=== PATIENT | male | born 1965 | race Hispanic/Latino ===

== ENCOUNTER 2016-11-14 23:53 | Observation (INO) | payer SELFPAY ==
--- NOTE | 2016-11-15 00:15 | ED PDOC ---
Arrival/HPI - General Time Seen by Provider: 11/15/16 00:09 Historian: Patient, EMS - History of Present Illness Narrative History of Present Illness (Text): 11/15/16 00:12 Patient is a 49 year old male who presents to the emergency department via ambulance for public intoxication. Admits to drinking throughout the day. Pt denies suicidal or homicidal ideations. Denies any trauma or injury. Severity Level: Mild Activities at Onset: Light Context: Street Past Medical History - Provider Review Nursing Documentation Reviewed: Yes Family/Social History - Physician Review Nursing Documentation Reviewed: Yes Family/Social History: No Known Family HX Allergies/Home Meds Allergies/Adverse Reactions: Allergies Unobtainable Allergy (Verified 11/15/16 00:18) Home Medications: Home Meds Medication Instructions Recorded Confirmed Unobtainable 11/15/16 11/15/16 Review of Systems - Review of Systems Systems not reviewed;Unavailable: Intoxicated Respiratory: absent: SOB, Cough, Sputum Cardiovascular: absent: Chest Pain Physical Exam Vital Signs Reviewed: Yes Vital Signs Temp Pulse Resp BP Pulse Ox 11/15/16 05:41 72 16 140/98 H 99 11/15/16 03:34 89 18 98 11/15/16 00:19 97.6 F 72 16 128/79 95 Temperature: Afebrile Blood Pressure: Normal Pulse: Regular Respiratory Rate: Normal Appearance: Positive for: Comfortable Pain Distress: None Mental Status: Positive for: Alert and Oriented X 3 - Systems Exam Head: Present: Atraumatic, Normocephalic Pupils: Present: PERRL Extroacular Muscles: Present: EOMI Conjunctiva: Present: Normal Mouth: Present: Moist Mucous Membranes Respiratory/Chest: Present: Clear to Auscultation, Good Air Exchange. No: Respiratory Distress, Accessory Muscle Use Cardiovascular: Present: Regular Rate and Rhythm, Normal S1, S2. No: Murmurs Abdomen: Present: Normal Bowel Sounds. No: Tenderness, Distention, Peritoneal Signs Upper Extremity: Present: Normal Inspection. No: Cyanosis, Edema Lower Extremity: Present: Normal Inspection. No: Edema Neurological: Present: GCS=15, CN II-XII Intact, Speech Normal, Motor Func Grossly Intact, Normal Sensory Function Skin: Present: Warm, Dry, Normal Color. No: Rashes Psychiatric: Present: Alert, Oriented x 3, Intoxicated Medical Decision Making ED Course and Treatment: 11/15/16 00:14 Impression: A 49 year old male who presents to the emergency department via EMS for public intoxication. Plan: -- Reassess and disposition Progress Notes: ED OBSERVATION Discharge: Yes Date of observation admission: 11/15/16 Time of observation admission: 00:00 - Observation admission statement Patient is being placed in observation because:: intoxication - Goals of Observation Goals of observation are:: pending sobriety and reevaluation - Progress Note Progress Note: 11/15/16 02:00 Patient sleeping in er with stable vitals. 11/15/16 04:00 Patient resting with stable vitals. - Scribe Statement The provider has reviewed the documentation as recorded by the Toddibe Marcy Weeks Provider Attestation: Provider Scribe Attestation: All medical record entries made by the Toddibe were at my direction and personally dictated by me. I have reviewed the chart and agree that the record accurately reflects my personal performance of the history, physical exam, medical decision making, and the department course for this patient. I have also personally directed, reviewed, and agree with the discharge instructions and disposition. Disposition/Present on Arrival - Present on Arrival Any Indicators Present on Arrival: No - Disposition Have Diagnosis and Disposition been Completed?: Yes Diagnosis: Alcohol abuse Disposition: HOME/ ROUTINE Disposition Time: 06:01 Condition: GOOD
[2016-11-15 00:20] VITALS: TEMP 97.6
[2016-11-15 05:42] VITALS: BP 140/98; PULSE 72; RESP 16; O2SAT 99
== END 2016-11-15 06:01 | disposition home or self-care (01) ==
LOC: ED 23:53 → EDBD 11-15 → EROBSV 11-15
PROVIDERS: ADMIT Emergency Medicine; ATTEND Emergency Medicine
DX: F10.10 Alcohol abuse, uncomplicated (principal)
CPT/HCPCS: 99283; G0378